=== PATIENT | male | born 1990 | race Caucasian/White ===

== ENCOUNTER 2016-04-05 12:06 | Emergency (ER) | payer OTHER ==
[2016-04-05 12:12] VITALS: RESP 16
[2016-04-05] MEDS ORDERED: IBUPROFEN 600 MG TAB PO ONE (12:30)
--- NOTE | 2016-04-05 12:51 | EDPHY ---
H & P Stated Complaint: Slipped/fell at work Monday;hit head on concrete,no LOC,feels dizzy today Time Seen by Provider: 04/05/16 12:17 HPI/ROS: CHIEF COMPLAINT: head injury HISTORY OF PRESENT ILLNESS: 25-year-old male presents emergency department complaining of a headache, nausea and mild dizziness. 2 days ago the patient was at work, slipped on the ice while throwing a bag of trash in the dumpster and fell onto his face. Patient denies loss of consciousness, remembers the entire accident, no neck pain. He cleaned a forehead laceration with hydrogen peroxide and placed Steri-Strips. Patient reports yesterday and today he has had a mild headache, mild nausea and dizziness. He denies forceful vomiting, no confusion, no altered gait. Patient denies previous head injury. REVIEW OF SYSTEMS: A comprehensive 10 point review of systems is otherwise negative aside from elements mentioned in the history of present illness. Source: Patient Exam Limitations: No limitations - Personal History Current Tetanus Diphtheria and Acellular Pertussis (TDAP): Yes - Medical/Surgical History Hx Asthma: No Hx Chronic Respiratory Disease: No Hx Diabetes: No Hx Cardiac Disease: No Hx Renal Disease: No Hx Cirrhosis: No Hx Alcoholism: No Hx HIV/AIDS: No Hx Splenectomy or Spleen Trauma: No Other PMH: denies - Social History Smoking Status: Current every day smoker - Physical Exam Exam: Physical Exam Gen: Alert and Oriented, NAD HEENT: PERRL, moist mucous membranes, no hemotympanum, no septal hematoma NECK: No C-spine tenderness to palpation CV: regular rate and regular rhythm PULM: CTAB, no wheezes ABDOMEN: soft, non tender to palpation, BS present BACK: No CVA tenderness NEURO: Neurologically grossly intact, normal [id number], normal heel-to- hernandez, normal rapid alternating movements EXTREMITIES: normal appearing SKIN: Abrasion to forehead and bridge of nose, mild swelling to bridge of nose PSYCH: answers questions appropriately. Constitutional: Initial Vital Signs Temperature (C) 36.7 C 04/05/16 12:08 Heart Rate 56 L 04/05/16 12:08 Respiratory Rate 16 04/05/16 12:08 Blood Pressure 133/67 H 04/05/16 12:08 O2 Sat (%) 98 04/05/16 12:08 O2 Delivery Mode Room Air Allergies/Adverse Reactions: No Known Allergies Allergy (Verified 04/05/16 12:08) Home Medications: Medication Instructions Recorded Ondansetron Odt [Zofran Odt] 4 mg PO Q6-8PRN PRN #8 tab 04/05/16 Medical Decision Making ED Course/Re-evaluation: This patient presents after a minor head injury with mild headache, no amnesia or LOC. Neurologic exam normal. No indication for neuro imaging. CH[facility] precautions given. Patient was given information for follow-up with Dr. Escobar. He and his are given strict return precautions, they are comfortable with this plan. Differential Diagnosis: The differential diagnosis for the patient's head injury included but was not limited to concussion, skull fracture, intra-parenchymal contusion, subarachnoid , subdural and epidural hematoma. - Data Points Medications Given: Discontinued Medications Ibuprofen (Motrin) 600 mg PO EDNOW ONE Stop: 04/05/16 12:31 Last Admin: 04/05/16 12:56 Dose: 600 mg Departure - Departure Disposition: Home, Routine, Self-Care Clinical Impression: Post concussive syndrome Head injury Qualifiers: Encounter type: initial encounter Qualified Code(s): S09.90XA - Unspecified injury of head, initial encounter Condition: Good Instructions: Head Injury (ED), Post Concussion Syndrome (ED) Additional Instructions: Take 600 mg of ibuprofen every 8 hours alternating with 650 mg of Tylenol every 8 hours so you're taking 1 than the other 4 hours later. Take Zofran as needed for nausea. Follow up with Dr. Escobar this week for concussion follow-up. Return to the emergency department for forceful vomiting, confusion, altered gait, any other questions or concerns. Referrals: Reyna Escobar MD [Medical Doctor] - As per Instructions (Head injury specialist) Stand Alone Forms: Work Excuse Prescriptions: Ondansetron Odt [Zofran Odt] 4 mg PO Q6-8PRN PRN #8 tab PRN Reason: Nausea/Vomiting, Can'T Take Po
[2016-04-05 13:27] VITALS: BP 135/80; PULSE 72; TEMP 97.9; O2SAT 96
== END 2016-04-05 13:26 | disposition home or self-care (01) ==
DX: S09.90XA Unspecified injury of head, initial encounter (principal); F07.81 Postconcussional syndrome; G44.309 Post-traumatic headache, unspecified, not intractable; F17.200 Nicotine dependence, unspecified, uncomplicated; W00.0XXA Fall on same level due to ice and snow, initial encounter; Y92.69 Other specified industrial and construction area as the place of occurrence of the external cause; Y99.0 Civilian activity done for income or pay; Y93.89 Activity, other specified